=== PATIENT | female | born 1945 | race African-American/Black ===

== ENCOUNTER → 2019-08-29 | Outpatient (CLI) | payer MEDICARE, OTHER ==
[~2019-08-29] MED LIST: AMLODIPINE BESY10 MG PO; CARVEDILOL12.5 MG PO; CLONIDINE HCL0.1 MG PO; CRESTOR10 MG PO
[2019-08-29 11:30] LABS: BASOPHILS % 0.3 % (0.0-1.0); EOSINOPHILS # (AUTO) 0.1 (0.0-0.4); HEMATOCRIT 43.9 % (34.2-44.1); HEMOGLOBIN 14.3 g/dL (12.0-16.0); LYMPHOCYTES # (AUTO) 1.1 (1.0-3.2); LYMPHOCYTES % 16.3 % (18.0-39.1); MEAN CORPUSCULAR HEMOGLOBIN 31.8 pg (28-32); MEAN CORPUSCULAR HGB CONC 32.6 g/dL (31-35); MEAN CORPUSCULAR VOLUME 97.6 fL (81-99); MONOCYTES # (AUTO) 0.4 (0.2-0.8); NEUTROPHILS # (AUTO) 5.2 (2.1-6.9); NEUTROPHILS % 76.1 % (38.7-80.0); PLATELET COUNT 200 x10e3/uL (140-360); RED CELL DISTRIBUTION WIDTH 13.9 % (11.7-14.4)
--- NOTE | 2019-08-29 12:29 | Diagnostic Imaging Report ---
EXAMINATION: CHEST 2 VIEWS INDICATION: Pre-operative COMPARISON: None FINDINGS: LINES/TUBES:None LUNGS:The lungs are well-inflated. No focal consolidation or pulmonary edema. PLEURA:No pleural effusion or pneumothorax. MEDIASTINUM:The cardiomediastinal silhouette is mildly enlarged. Atherosclerotic calcifications of the thoracic aorta. BONES/SOFT TISSUES:No acute osseous injury. ABDOMEN:No free air under the diaphragm. IMPRESSION: No focal pneumonia or pulmonary edema. Mild cardiomegaly. Signed by: Yoli Browning MD on 08/29/2019 12:26 PM
== END ==
LOC: RAD 05:00 → EDSTATUS 08-30 13:30
PROVIDERS: ATTEND Obstetrics & Gynecology Obstetrics
DX: Z01.818 Encounter for other preprocedural examination (principal); N85.00 Endometrial hyperplasia, unspecified
CPT/HCPCS: 36415; 71046; 85025; 93005

== ENCOUNTER → 2020-02-20 | Day surgery (SDC) | payer MEDICARE, OTHER ==
[2020-02-15 13:15] LABS: BASOPHILS % 0.2 % (0.0-1.0); EOSINOPHILS % 0.6 % (0.0-6.0); HEMOGLOBIN 14.2 g/dL (12.0-16.0); LYMPHOCYTES # (AUTO) 1.1 (1.0-3.2); LYMPHOCYTES % 17.1 % (18.0-39.1); MEAN CORPUSCULAR HEMOGLOBIN 30.9 pg (28-32); MEAN CORPUSCULAR HGB CONC 32.3 g/dL (31-35); MEAN CORPUSCULAR VOLUME 95.9 fL (81-99); MONOCYTES # (AUTO) 0.4 (0.2-0.8); NEUTROPHILS # (AUTO) 4.7 (2.1-6.9); NEUTROPHILS % 74.9 % (38.7-80.0); PLATELET COUNT 212 x10e3/uL (140-360); RED BLOOD COUNT 4.59 x10e6/uL (3.6-5.1); RED CELL DISTRIBUTION WIDTH 14.3 % (11.7-14.4)
--- NOTE | 2020-02-15 13:29 | Diagnostic Imaging Report ---
EXAM: CHEST 2 VIEWS DATE: 02/15/2020 12:50 PM INDICATION: Preoperative evaluation COMPARISON: 08/29/2019 FINDINGS: The trachea is midline. The lungs are symmetrically expanded without evidence for large focal consolidation, pneumothorax, or significant pleural effusion. The cardiomediastinal silhouette is stable in appearance. Mild atherosclerotic calcifications noted within the aortic arch. No acute osseous abnormalities identified. The surrounding soft tissues are unremarkable. IMPRESSION: No acute cardiopulmonary process identified. Signed by: Dr. Lisandro Mcdermott MD on 02/15/2020 1:25 PM
[~2020-02-20] MED LIST changes: +ELIQUIS5 MG PO
[2020-02-20 13:05] VITALS: BP 162/85
--- NOTE | 2020-02-20 17:26 | Operative Report ---
DATE OF PROCEDURE: 02/20/2020 SURGEON: Rosibel Camacho MD SURGEON: Rosibel Perez MD SAFETY AND SECURITY MANAGER: None. PREOPERATIVE DIAGNOSIS: Thickened endometrium. POSTOPERATIVE DIAGNOSES: Thickened endometrium as well as endometrial polyp. PROCEDURES PERFORMED: Dilatation and curettage and hysteroscopic polypectomy. ANESTHESIA: General. ESTIMATED BLOOD LOSS: Minimal. COMPLICATIONS: None. FINDINGS: Small anteverted uterus with hysteroscopic findings of two endometrial polyps, one near the fundus on the posterior wall and one on the right anterior wall. SPECIMENS: Endometrial curettings with fragments of polyps. INDICATIONS: The patient is a 74-year-old postmenopausal female, who was having pelvic pain, underwent a pelvic ultrasound and was noted to have thickened endometrium on ultrasound. PROCEDURE NOTE: The risks, benefits, indications, and alternatives of the procedure were discussed with the patient. Consent was obtained. She was taken operating room, where general anesthesia was obtained. She was prepped and draped in typical sterile fashion in the dorsal lithotomy position in [facility]. A time-out was done. The patient's bladder was drained with a straight catheter prior to the procedure. A weighted speculum was placed in the vagina and the anterior lip of the cervix was grasped with a single-tooth tenaculum. The cervix was then sequentially dilated with the Hegar dilators in order to allow for advancement of the TruClear hysteroscope to the level of the uterine fundus. The uterine cavity was explored with the above-noted findings. The TruClear device was then used to morcellate and remove the polyps under direct visualization. Sharp curettage was then performed and all curettings were sent for pathology. A survey of the uterine cavity then revealed a normal-appearing and intact cavity. All instruments were removed from the patient's vagina. The tenaculum sites and uterus were noted to be hemostatic. The patient was awakened and brought to the recovery room in stable condition, having tolerated the procedure well. All sponge, lap, needle, and instrument counts were correct x2 at the end of the procedure. Rosibel Camacho MD MEF/MODL /[id number]
== END | disposition home or self-care (01) ==
LOC: OR 09:50
PROVIDERS: ATTEND Obstetrics & Gynecology Obstetrics
DX: N84.0 Polyp of corpus uteri (principal); I10 Essential (primary) hypertension; I48.91 Unspecified atrial fibrillation; E78.5 Hyperlipidemia, unspecified; Z01.810 Encounter for preprocedural cardiovascular examination; Z01.812 Encounter for preprocedural laboratory examination; Z01.818 Encounter for other preprocedural examination; Z11.59 Encounter for screening for other viral diseases; Z79.82 Long term (current) use of aspirin; Z79.02 Long term (current) use of antithrombotics/antiplatelets
CPT/HCPCS: 36415; 58558; 71046; 85025; 88305; 93005; C1758; U0002